=== PATIENT | female | born 1985 | race Caucasian/White ===

== ENCOUNTER 2017-10-08 07:21 | Outpatient (CLI) | payer OTHER ==
[~2017-10-08 07:21] MED LIST: ORTHO TRI-7 DAYSX1
== END 2017-10-08 08:22 | disposition home or self-care (01) ==
LOC: MAMO-SONO 07:21
DX: Z12.31 Encounter for screening mammogram for malignant neoplasm of breast (principal)

== ENCOUNTER 2018-12-31 11:25 | Outpatient (CLI) | payer OTHER | END 2018-12-31 11:27 | disposition home or self-care (01) | LOC: SONOGRAMA 11:25 | DX: M25.511 Pain in right shoulder (principal) ==

== ENCOUNTER 2019-05-12 14:18 | Outpatient (CLI) | payer OTHER | END 2019-05-12 15:09 | disposition home or self-care (01) | LOC: MAMO-SONO 14:18 | DX: Z12.31 Encounter for screening mammogram for malignant neoplasm of breast (principal); Z87.898 Personal history of other specified conditions; N60.11 Diffuse cystic mastopathy of right breast; N60.12 Diffuse cystic mastopathy of left breast ==